=== PATIENT | female | born 1970 | race Caucasian/White ===

== ENCOUNTER 2024-09-20 19:27 | Emergency (ER) | payer OTHER, SELFPAY ==
[2024-09-20 19:29] VITALS: BP 131/75; PULSE 93; RESP 19; TEMP 36.6; O2SAT 99; BMI 17.1
--- NOTE | 2024-09-20 19:42 | PCA ---
CRISIS ALREADY ASSESSED PRIOR TO ARRIVAL. WILL SEND MEDICAL CHART WHEN CLEARED.
--- NOTE | 2024-09-20 19:50 | RAD_ITS ---
PROCEDURE: FINGER(S) MIN 2 VIEWS 09/20/2024 REASON FOR EXAM: THUMB TECHNIQUE: 3 view(s) of the right thumb COMPARISON: None FINDINGS: No acute fracture or dislocation. Joint spaces are maintained. No significant soft tissue swelling. No radiopaque foreign body. RAD/Finger(s) Min 2 Views IMPRESSION: NO ACUTE FRACTURE OR DISLOCATION. Reading Location: [facility]
--- NOTE | 2024-09-20 19:57 | EX.ED.VIS.PS ---
HPI HPI - Psych History of Present Illness Chief Complaint: Mental Health Narrative Narrative: Chief complaint and HPI: Paranoia. 54-year-old female with past medical history of meth abuse and depression not on medication presents via police and crisis for paranoia. Per report, patient has called [facility] many times and over the last several days stating there are worms/parasite in her fingers. She states there was also nails on her finger. She currently states that there is a worm in her right thumb. She has been telling police that people have been tearing her schwartz apart and that someone was under her house putting meth in her schwartz. She states that she last used methamphetamine yesterday. She states that she smokes this and denies any IV drugs. Denies any alcohol abuse but states she has a history of this in the past. She denies any suicidal or homicidal ideation, although merlin alston states that she threatened to kill herself if she was taken to the hospital. She does admit to saying this but states she did not mean it. Review of systems: See HPI Medications: As listed on the chart Allergies: As listed on the chart PFSH: Per chart Vital signs: As listed on the chart. Reviewed. Physical exam: Gen: Alert, oriented x 3, restless, NAD Head: Normocephalic, atraumatic Eyes: No sclera icterus, conjunctiva clear, PERRL, EOMI ENT: Moist mucous membranes Neck: Trachea midline, No JVD CV: RRR, no murmurs, no peripheral edema Resp: Lungs CTA BL, no w/r/c GI: Abd soft, non-distended, non-tender, no r/r/g Musc: Full ROM, no deformity, patient's hands are unkept with dirt, she has calluses on multiple fingers with excoriations from what appears to be picking, she is fixated on the callus of her right thumb fingertip where there is an excoriation stating that there is a worm in her finger and that she can feel it moving Skin: Warm, dry Neuro: Alert, oriented x 3, grossly intact, sensation intact Psych: Intermittently cooperative, restless, intermittently agitated, paranoid PFSH PFS Home Medications ?Medication ?Instructions ?Recorded ?Last Taken ?Type NK 09/20/24 Unknown History Allergy/AdvReac Type Severity Reaction Status Date / Time No Known Allergies Allergy Verified 09/20/24 19:29 Surgical History (Updated 09/20/24 @ 19:30 by Mirtha Torre) History of hysterectomy Social History Smoking Status: Current every day smoker tobacco type: cigarettes EXAM Physical Exam Const Vital Signs: 09/20/24 19:29 09/20/24 20:29 09/20/24 21:00 Temperature 98 F Temperature Source Temporal Pulse Rate 93 95 89 Respiratory Rate 19 H 17 19 H Blood Pressure 131/75 H 129/87 H Blood Pressure Mean 93 101 Pulse Ox 99 98 98 Oxygen Delivery Method Room Air Room Air Room Air MDM MDM MDM Narrative Medical decision making narrative: 54-year-old female with past medical history of meth abuse and depression not on medication presents via police and crisis for paranoia. Patient believes that there is worms actively in her fingers mostly in her right thumb. She has been calling the police multiple days with multiple complaints including someone messing with the schwartz in her house as well as putting meth in the schwartz. Patient is actively paranoid on presentation. She was brought in by PD and crisis. Patient denies suicidal homicidal ideation. Patient was pink slipped due to her paranoia. Will get an x-ray to assess for anything in her finger although I do not believe anything to be in there. Basic labs ordered for inpatient psychiatric clearance. CBC without leukocytosis. Patient has anemia with a hemoglobin 11.9. I do not have previous labs to compare to however suspect this is likely chronic. BMP relatively unremarkable. TSH unremarkable. Serum negative. Ethanol level unremarkable. X-ray of the right thumb shows no fracture or dislocation. No foreign body. This was personally reviewed and interpreted by me, ED physician. Urine drug screen positive for amphetamines. Patient does admit to amphetamine abuse yesterday. At this point in time, patient is medically cleared for inpatient psychiatric facility. She was updated on the results and the plan. Impression: 1. Paranoia 2. History of depression not on medication 3. Methamphetamine abuse Lab Data Labs: Laboratory Results - last 24 hr 09/20/24 09/20/24 19:47 20:51 WBC 4.5 RBC 3.90 L Hgb 11.9 L Hct 34.0 L MCV 87.2 MCH 30.5 MCHC 35.0 RDW Std Deviation 39.6 RDW Coeff of Aspen 12.3 Plt Count 219 MPV 10.2 Immature Gran % (Auto) 0.200 Neut % (Auto) 53.2 Lymph % (Auto) 30.7 Baldwin % (Auto) 11.2 H Eos % (Auto) 3.1 Baso % (Auto) 1.6 H Absolute Neuts (auto) 2.4 Absolute Lymphs (auto) 1.37 Nucleated RBC % 0 Sodium 137 Potassium 3.9 Chloride 104 Carbon Dioxide 20.8 L Anion Gap 13 BUN 17 Creatinine 0.76 Estim Creat Clear Calc 61.92 Est GFR (MDRD) Non-Af 94 BUN/Creatinine Ratio 22.7 H Glucose 106 H Calcium 9.2 TSH 2.350 Serum , Qual NEGATIVE Urine Opiates Screen NEGATIVE U Buprenorphine Qual NEGATIVE Ur Oxycodone Screen NEGATIVE Urine Methadone Screen NEGATIVE Urine Fentanyl Screen NEGATIVE Ur Barbiturates Screen NEGATIVE Ur Phencyclidine Scrn NEGATIVE Ur Amphetamines Screen PRESUMPTIVE POSITIVE U Benzodiazepines Scrn NEGATIVE Urine Cocaine Screen NEGATIVE U Cannabinoids Screen NEGATIVE Ethyl Alcohol < 10.1 Radiography Diagnostic Testing: Clinical Impression(s) from Imaging Studies Finger X-Ray 09/20/24 19:50 IMPRESSION: NO ACUTE FRACTURE OR DISLOCATION. Reading [facility] Triage Chief Complaint: Mental Health ED Provider: Amandeep Rivera Dx/Rx/DC Orders Prescriptions: No Action NK Primary Care Provider: Care Physician,No Primary Referrals: Care Physician,No Primary [Primary Care Provider] - Print Language: Kenyan
[2024-09-20 19:58] LABS: Absolute Lymphocyte Count 1.37 X10^3/uL (0.83-4.51); Absolute Neutrophil Count 2.4 X10^3/uL (2.0-7.7); Basophil# 0.07 X10^3/uL; Basophil% 1.6 % (0-1); Eosinophil# 0.14 X10^3/uL; Eosinophils% 3.1 % (0-5); Hemoglobin 11.9 g/dL (12.0-15.0); Lymphocyte # 1.37 X10^3/ul (0.83-4.51); Lymphocyte % 30.7 % (19-41); Mean Corpuscular Hgb 30.5 pg (27.0-32.0); Mean Corpuscular Volume 87.2 fL (81-99); Mean Platelet Vol. 10.2 fl (6.2-12.0); Monocyte% 11.2 % (0-10); NRBC Flagged by Analyzer 0 % (0-5); Neutrophil # 2.37 X10^3/uL (2.7-7.7); Neutrophil % 53.2 % (47-70); Platelet Count 219 K/mm3 (150-450); RBC Distribution Width CV 12.3 % (11.6-14.6); RBC Distribution Width SD 39.6 fl (35.1-43.9); White Blood Count 4.5 K/mm3 (4.4-11.0)
[2024-09-20 20:03] LABS: Internal QC Validated? YES +Cl - CLEAR BKGD; Pregnancy, Serum, hCG Quali. NEGATIVE Negative
[2024-09-20 20:29] VITALS: BP 129/87; PULSE 95; RESP 17; O2SAT 98
[2024-09-20 20:32] LABS: Alcohol, Blood (Medical)-Serum < 10.1 mg/dL (<=10.0)
[2024-09-20 20:39] LABS: Anion Gap 13 (5-15); BUN 17 mg/dL (4-19); BUN/Creat Ratio 22.7 RATIO (10-20); Calcium,Total 9.2 mg/dL (7.6-11.0); Carbon Dioxide 20.8 mmol/L (21.0-32.0); Chloride 104 mmol/L (98-108); Creatinine, Serum 0.76 mg/dL (0.70-1.20); EST Glomerular Filtration Rate 94 (>60); Estimated Creatinine Clearance 61.92 ml/min (50-250); Glucose 106 mg/dL (70-99); Potassium 3.9 mmol/L (3.3-5.1); Sodium Level 137 mmol/L (133-145)
[2024-09-20 21:00] VITALS: PULSE 89; RESP 19; O2SAT 98
[2024-09-20 21:33] LABS: Amphetamine Urine PRESUMPTIVE POSITIVE (<1000 ng/mL); Barbiturate Urine NEGATIVE (< 200 ng/mL); Benzodiazepine Urine NEGATIVE (< 200 ng/mL); Buprenorphine Urine NEGATIVE (< 200 ng/mL); Cocaine Urine NEGATIVE (< 300 ng/mL); Fentanyl, Urine NEGATIVE; Methadone Urine NEGATIVE (< 300 ng/mL); Opiates Urine NEGATIVE (< 300 ng/mL); Oxycodone, Urine NEGATIVE (< 100 ng/mL); PCP Urine NEGATIVE (< 25 ng/mL); THC Urine NEGATIVE (< 50 ng/mL)
--- NOTE | 2024-09-20 21:43 | PCA ---
CHART FAXED TO CRISIS
[2024-09-20 22:00] VITALS: BP 120/79; PULSE 97; RESP 16; O2SAT 97
--- NOTE | 2024-09-20 22:57 | PCA ---
PT ACCEPTED [id number] [phone]
[2024-09-21 00:53] VITALS: BP 121/74; PULSE 81; RESP 16; TEMP 36.1; O2SAT 96
== END 2024-09-21 00:55 ==
LOC: ED 19:52
PROVIDERS: Emergency Provider Surgery; Visit Provider Surgery
DX: F22 Delusional disorders (principal); F15.10 Other stimulant abuse, uncomplicated; D64.9 Anemia, unspecified; F17.210 Nicotine dependence, cigarettes, uncomplicated; F32.A Depression, unspecified; L84 Corns and callosities
CPT/HCPCS: 73140; 99285